=== PATIENT | male | born 1960 | race Caucasian/White ===

== ENCOUNTER → 2017-06-21 | Outpatient (CLI) | payer BC | LOC: CARD 10:20 | PROVIDERS: ATTEND Internal Medicine Cardiovascular Disease | DX: I48.0 Paroxysmal atrial fibrillation (principal); I25.10 Atherosclerotic heart disease of native coronary artery without angina pectoris; I11.0 Hypertensive heart disease with heart failure; I50.9 Heart failure, unspecified; E78.2 Mixed hyperlipidemia | CPT/HCPCS: 93306 ==

== ENCOUNTER 2017-07-09 19:48 | Outpatient (CLI) | payer BC | END 2017-07-10 06:36 | disposition home or self-care (01) | LOC: SLEEP 19:48 | PROVIDERS: ATTEND Internal Medicine Cardiovascular Disease | DX: R06.83 Snoring (principal); G47.10 Hypersomnia, unspecified; I10 Essential (primary) hypertension; I49.9 Cardiac arrhythmia, unspecified | CPT/HCPCS: 95810 ==

== ENCOUNTER 2017-08-03 08:17 | Day surgery (SDC) | payer BC ==
[~2017-08-03] VITALS: Ht 180.3 cm; Wt 147.4 kg
--- OUTSIDE RECORDS SUMMARY | 2017-08-03 08:21 | XMS REPORT ---
Author MAYITO [facility] Address [address] [place], [place] [id number] Care Team Providers Care Threat Monitoring Analyst Name Role Phone MAYITO DENIS PCP Unavailable MAYITO DENIS PreferredProvider Unavailable Allergies and Adverse Reactions Name Reaction Notes No known allergies Plan of Treatment Planned Activity Comments Planned Date Planned Time Plan/Goal CBC with Differential 07/02/2017 12:00 AM CMP 07/02/2017 12:00 AM .Lipid Panel 07/02/2017 12:00 AM THYROID PANEL. 07/02/2017 12:00 AM THYROID PANEL. 07/02/2017 12:00 AM THYROID PANEL. 07/02/2017 12:00 AM Medications Active Name Start Date Estimated Completion Date SIG Comments carvedilol 25 mg oral tablet 05/04/2017 lisinopril 20 mg oral tablet 05/04/2017 Xarelto 20 mg oral tablet 05/04/2017 digoxin 125 mcg oral tablet 05/04/2017 furosemide 40 mg oral tablet 05/04/2017 atorvastatin 20 mg oral tablet 02/01/2017 Problem List Not available. Vital Signs Date Time BP-Sys(mm[Hg] BP-Carlita(mm[Hg]) HR(bpm) RR(rpm) Temp WT HT HC BMI BSA BMI Percentile O2 Sat(%) 05/22/2017 6:52:00 AM 132 mmHg 80 mmHg 70 bpm 16 rpm 98 F 322 lbs 71.5 in 44.28 kg/m2 2.71 m2 98 % Social History Name Description Comments Tobacco Never smoker Alcohol Light Uses seatbelts History of Procedures Date Ordered Description Order Status 07/02/2017 12:00 AM ROUTINE VENIPUNCTURE Reviewed Results Summary Not available. History Of Immunizations Not available. 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
--- OUTSIDE RECORDS SUMMARY | 2017-08-03 08:21 | XMS REPORT | Referral Summary ---
Author Author [facility] Organization [facility] Address Unknown Phone Unavailable Care Team Providers Care Chief Diversity Officer Name Role Phone Dex Kennedy PCP Encounter VC Date(s): 12/30/14 - 12/30/14 [facility] [address] [place], [place] [address] Discharge Diagnosis: Chronic atrial fibrillation Discharge Diagnosis: Nonischemic cardiomyopathy Discharge Diagnosis: Chronic systolic CHF (congestive heart failure), NYHA class 2 Discharge Diagnosis: CAD (coronary artery disease) Discharge Diagnosis: Family history of coronary artery disease Discharge Diagnosis: Benign essential HTN Discharge Disposition: 01-Home or Self Care Attending Physician: Umesh Ortiz MD Admitting Physician: Umesh Ortiz MD Referring Physician: Dex Kennedy MD Vital Signs Most recent to 1 oldest [Reference Range]: Peripheral Pulse 60 bpm Rate [60-100 bpm] (12/30/14 2:50 PM) Blood Pressure 118/82 mmHg [90-140/60-90 mmHg] (12/30/14 2:50 PM) Problem List Condition Effective Dates Status Health Status Informant Atrial Active patient fibrillation(Confirm ed) Congestive heart Active patient failure(Confirmed) Fluid Active imbalance(Confirmed) 1 Hypertension(Confirm Active patient ed) Morbid Active patient obesity(Confirmed) Decreased urine Active patient volume(Confirmed) 1Problem added automatically by system based on initiation of Fluid Volume Imbalance Plan of Care Allergies, Adverse Reactions, Alerts No Known Medication Allergies Medications aspirin 81 mg oral tablet, chewable 1 tabs, Oral, Daily, 0 Refill(s) Start Date: 07/17/14 Status: Ordered atorvastatin 10 mg oral tablet 1 tabs, Oral, Bedtime (once a day), # 90 tabs, 5 Refill(s), Pharmacy: [id number], 1 tabs Oral Bedtime (once a day) Start Date: 07/30/14 Status: Ordered carvedilol 25 mg oral tablet 25 mg 1 tabs, Oral, BID, # 60 tabs, 5 Refill(s), Pharmacy: [id number] , 1 tabs Oral BID Start Date: 05/24/15 Status: Ordered digoxin 125 mcg (0.125 mg) oral tablet 1 tabs, Oral, Daily, # 90 tabs, 5 Refill(s), Pharmacy: [id number], 1 tabs Oral Daily Start Date: 07/30/14 Status: Ordered furosemide 40 mg oral tablet 1 tabs, Oral, BID, # 180 tabs, 5 Refill(s), Pharmacy: [id number], 1 tabs Oral BID Start Date: 07/30/14 Status: Ordered lisinopril 20 mg oral tablet 1 tabs, Oral, Daily, # 90 tabs, 5 Refill(s), Pharmacy: [id number] Start Date: 09/30/14 Status: Ordered multivitamin 1 tabs, Oral, Daily, 0 Refill(s) Start Date: 12/30/14 Status: Ordered Xarelto 20 mg oral tablet 1 tabs, Oral, qPM, # 30 tabs, 11 Refill(s), Pharmacy: [id number], 1 tabs Oral qPM Start Date: 11/20/14 Status: Ordered Results No data available for this section Immunizations No data available for this section Procedures Procedure Date Related Diagnosis Body Site Colonoscopy Tonsillectomy Social History Social History Type Response Smoking Status Former smoker Assessment and Plan Extracted from: Title: Office Visit Note Author: Umesh Ortiz MD Date: 12/30/14 Assessment/Plan Benign essential HTN Controlled. Continue current meds. Ordered: Office Visit Level 4 Est [id number] Return to Clinic CAD (coronary artery disease) Nonobstructive CAD per cath in November 2014. Continue aspirin, Coreg, Atorvastatin. Chronic atrial fibrillation Rate is controlled. Continue digoxin, Coreg, Xarelto. Ordered: Office Visit Level 4 Est [id number] Return to Clinic Chronic systolic CHF (congestive heart failure), NYHA class 2 Euvolemic. NYHA FC I-II. Continue lasix, Coreg, lisinopril, digoxin. LVEF 15-20% in June 2014. Will repeat echo. If LVEF < 35%, will refer for AICD for primary prevention for SCD. Ordered: Office Visit Level 4 Est [id number] Return to Clinic Family history of coronary artery disease Ordered: Office Visit Level 4 Est [id number] Return to Clinic Nonischemic cardiomyopathy See CHF. F/u in 4 months. Ordered: Office Visit Level 4 Est [id number] Return to Clinic Orders: Request for Cardiovascular Echo Referrals to Other Providers Referred by: Umesh Ortiz MD
--- OUTSIDE RECORDS SUMMARY | 2017-08-03 08:21 | XMS REPORT | Referral Summary ---
Author Author [facility] Organization [facility] Address Unknown Phone Unavailable Care Team Providers Care Bonderizer Operator Name Role Phone Dex Kennedy PCP Encounter VC Date(s): 12/30/14 - 12/30/14 [facility] [address] [place], [place] [address] Discharge Diagnosis: Chronic atrial fibrillation Discharge Diagnosis: [...] meds. Ordered: Office Visit Level 4 Est [id number] Return to Clinic CAD (coronary artery disease) Nonobstructive CAD per cath in November 2014. Continue aspirin, Coreg, Atorvastatin. Chronic atrial fibrillation Rate is controlled. Continue digoxin, Coreg, Xarelto. Ordered: Office Visit Level 4 Est [id number] Return to Clinic Chronic systolic CHF (congestive heart failure), NYHA class 2 Euvolemic. NYHA FC I-II. Continue lasix, Coreg, lisinopril, digoxin. LVEF 15-20% in June 2014. Will repeat echo. If LVEF < 35%, will refer for AICD for primary prevention for SCD. Ordered: Office Visit Level 4 Est [id number] Return to Clinic Family history of coronary artery disease Ordered: Office Visit Level 4 Est [id number] Return to Clinic Nonischemic cardiomyopathy See CHF. F/u in 4 months. Ordered: Office Visit Level 4 Est [id number] Return to Clinic Orders: Request for Cardiovascular Echo Referrals to Other Providers Referred by: Umesh Ortiz MD
--- OUTSIDE RECORDS SUMMARY | 2017-08-03 08:21 | XMS REPORT | Referral Summary ---
Author Author [facility] Organization [facility] Address Unknown Phone Unavailable Care Team Providers Care Past Due Accounts Clerk Name Role Phone Dex Kennedy PCP Encounter VC Date(s): 05/24/16 - 05/24/16 [facility] [address] [place] [address] Discharge Diagnosis: Family history of coronary artery disease Discharge Diagnosis: Chronic atrial fibrillation Discharge Diagnosis: Chronic systolic heart failure Discharge Diagnosis: CAD (coronary artery disease) Discharge Diagnosis: HTN (hypertension) Discharge Disposition: 01-Home or Self Care Attending Physician: Umesh Ortiz MD Admitting Physician: Umesh Ortiz MD Vital Signs Most recent to 1 oldest [Reference Range]: Peripheral Pulse 72 bpm Rate [60-100 bpm] (05/24/16 2:05 PM) Blood Pressure 124/82 mmHg [90-140/60-90 mmHg] (05/24/16 2:05 PM) Problem List Condition Effective Dates Status [...] Status: Ordered carvedilol 25 mg oral tablet See Instructions, 1 TABS ORAL TWICE DAILY, # 60 tabs, 5 Refill(s), eRx: [id number], 1 TABS ORAL TWICE DAILY Start Date: 12/02/15 Status: Ordered digoxin 125 mcg (0.125 mg) oral tablet See Instructions, TAKE 1 TABLET DAILY, # 30 tabs, eRx: [id number], TAKE 1 TABLET DAILY Start Date: 05/18/16 Status: Ordered furosemide 40 mg oral tablet 40 mg 1 tabs, Oral, Daily, # 180 tabs, 5 Refill(s), eRx: [id number], 1 tabs Oral BID Start Date: 09/16/15 Status: Ordered lisinopril 10 mg oral tablet See Instructions, 1 tabs Oral Daily, # 90 tabs, 5 Refill(s), eRx: [id number], 1 tabs Oral Daily Start Date: 10/19/15 Status: Ordered multivitamin 1 tabs, Oral, Daily, 0 Refill(s) Start Date: 12/30/14 Status: Ordered Xarelto 20 mg oral tablet 20 mg 1 tabs, Oral, qPM, # 30 tabs, 6 Refill(s), Pharmacy: [id number] , 1 tabs Oral qPM Start Date: 12/08/15 Status: Ordered Results No data available for this section Immunizations No data available for this section Procedures Procedure Date Related Diagnosis Body Site Colonoscopy Tonsillectomy Social History Social History Type Response Smoking Status Former smoker Assessment and Plan Extracted from: Title: Ambulatory Patient Education Author: Umesh Ortiz MD Date : 05/24/16 Cardiovascular Atrial Fibrillation Atrial fibrillation is a type of irregular heart rhythm (arrhythmia). During atrial fibrillation, the upper chambers of the heart (atria) quiver continuously in a chaotic pattern. This causes an irregular and often rapid heart rate. Atrial fibrillation is the result of the heart becoming overloaded with disorganized signals that tell it to beat. These signals are normally released one at a time by a part of the right atrium called the sinoatrial node. They then travel from the atria to the lower chambers of the heart (ventricles), causing the atria and ventricles to contract and pump blood as they pass. In atrial fibrillation, parts of the atria outside of the sinoatrial node also release these signals. This results in two problems. First, the atria receive so many signals that they do not have time to fully contract. Second, the ventricles, which can only receive one signal at a time, beat irregularly and out of rhythm with the atria. There are three types of atrial fibrillation: Paroxysmal. Paroxysmal atrial fibrillation starts suddenly and stops on its own within a week. Persistent. Persistent atrial fibrillation lasts for more than a week. It may stop on its own or with treatment. Permanent. Permanent atrial fibrillation does not go away. Episodes of atrial fibrillation may lead to permanent atrial fibrillation. Atrial fibrillation can prevent your heart from pumping blood normally. It increases your risk of stroke and can lead to heart failure. CAUSES Heart conditions, including a heart attack, heart failure, coronary artery disease, and heart valve conditions. Inflammation of the sac that surrounds the heart (pericarditis). Blockage of an artery in the lungs (pulmonary embolism). Pneumonia or other infections. Chronic lung disease. Thyroid problems, especially if the thyroid is overactive (hyperthyroidism) . Caffeine, excessive alcohol use, and use of some illegal drugs. Use of some medicines, including certain decongestants and diet pills. Heart surgery. defects. Sometimes, no cause can be found. When this happens, the atrial fibrillation is called lone atrial fibrillation. The risk of complications from atrial fibrillation increases if you have lone atrial fibrillation and you are age 60 years or older. RISK FACTORS Heart failure. Coronary artery disease. Diabetes mellitus. High blood pressure (hypertension). Obesity. Other arrhythmias. Increased age. SIGNS AND SYMPTOMS A feeling that your heart is beating rapidly or irregularly. A feeling of discomfort or pain in your chest. Shortness of breath. Sudden light-headedness or weakness. Getting tired easily when exercising. Urinating more often than normal (mainly when atrial fibrillation first begins). In paroxysmal atrial fibrillation, symptoms may start and suddenly stop. DIAGNOSIS Your health care provider may be able to detect atrial fibrillation when taking your pulse. Your health care provider may have you take a test called an ambulatory electrocardiogram (ECG). An ECG records your heartbeat patterns over a 24-hour period. You may also have other tests, such as: Transthoracic echocardiogram (TTE). During echocardiography, sound waves are used to evaluate how blood flows through your heart. Transesophageal echocardiogram (BUCKY). Stress test. There is more than one type of stress test. If a stress test is needed, ask your health care provider about which type is best for you. Chest X-ray exam. Blood tests. Computed tomography (CT). TREATMENT Treatment may include: Treating any underlying conditions. For example, if you have an overactive thyroid, treating the condition may correct atrial fibrillation. Taking medicine. Medicines may be given to control a rapid heart rate or to prevent blood clots, heart failure, or a stroke. Having a procedure to correct the rhythm of the heart: Electrical cardioversion. During electrical cardioversion, a controlled, low-energy shock is delivered to the heart through your skin. If you have chest pain, very low blood pressure, or sudden heart failure, this procedure may need to be done as an emergency. Catheter ablation. During this procedure, heart tissues that send the signals that cause atrial fibrillation are destroyed. Surgical ablation. During this surgery, thin lines of heart tissue that carry the abnormal signals are destroyed. This procedure can either be an open- heart surgery or a minimally invasive surgery. With the minimally invasive surgery, small cuts are made to access the heart instead of a large opening. Pulmonary venous isolation. During this surgery, tissue around the veins that carry blood from the lungs (pulmonary veins) is destroyed. This tissue is thought to carry the abnormal signals. HOME CARE INSTRUCTIONS Take medicines only as directed by your health care provider. Some medicines can make atrial fibrillation worse or recur. If blood thinners were prescribed by your health care provider, take them exactly as directed. Too much blood-thinning medicine can cause bleeding. If you take too little, you will not have the needed protection against stroke and other problems. Perform blood tests at home if directed by your health care provider. Perform blood tests exactly as directed. Quit smoking if you smoke. Do not drink alcohol. Do not drink caffeinated beverages such as coffee, soda, and some teas. You may drink decaffeinated coffee, soda, or tea. Maintain a healthy weight.Do not use diet pills unless your health care provider approves. They may make heart problems worse. Follow diet instructions as directed by your health care provider. Exercise regularly as directed by your health care provider. Keep all follow-up visits as directed by your health care provider. This is important. PREVENTION The following substances can cause atrial fibrillation to recur: Caffeinated beverages. Alcohol. Certain medicines, especially those used for breathing problems. Certain herbs and herbal medicines, such as those containing ephedra or ginseng. Illegal drugs, such as cocaine and amphetamines. Sometimes medicines are given to prevent atrial fibrillation from recurring. Proper treatment of any underlying condition is also important in helping prevent recurrence. SEEK MEDICAL CARE IF: You notice a change in the rate, rhythm, or strength of your heartbeat. You suddenly begin urinating more frequently. You tire more easily when exerting yourself or exercising. SEEK IMMEDIATE MEDICAL CARE IF: You have chest pain, abdominal pain, sweating, or weakness. You feel nauseous. You have shortness of breath. You suddenly have swollen feet and ankles. You feel dizzy. Your face or limbs feel numb or weak. You have a change in your vision or speech. MAKE SURE YOU: Understand these instructions. Will watch your condition. Will get help right away if you are not doing well or get worse. This information is not intended to replace advice given to you by your health care provider. Make sure you discuss any questions you have with your health care provider. Document Released: 08/06/2006 Document Revised: 08/27/2015 Document Reviewed: [facility] Patient Information 2016 [employer]. No follow up information was provided. Extracted from: Title: Office Visit Note Author: Umesh Ortiz MD Date: 05/24/16 Assessment/Plan 1.Chronic systolic heart failure NYHA FC I. Euvolemic on the exam. Normalized LVEF. Continue lasix, Coreg, and Lisinopril. 2.Chronic atrial fibrillation Rate is controlled. Continue Coreg, digoxin , and Xarelto. 3.CAD (coronary artery disease) Checkfasting lipid with PCP. Nonobstructive coronaries. Continue ASA and statin. 4.HTN (hypertension) Controlled. Continue current meds. 5.Family history of coronary artery disease F/u 6 months. Referrals to Other Providers Referred by: Umesh Ortiz MD
--- OUTSIDE RECORDS SUMMARY | 2017-08-03 08:22 | XMS REPORT | Referral Summary ---
Author Author [facility] Organization [facility] Address Unknown Phone Unavailable Care Team Providers Care Tractor Crane Operator Name Role Phone Dex Kennedy PCP Encounter VC Date(s): 12/30/14 - 12/30/14 [facility] [address] [place], [place] [address] Discharge Diagnosis: Chronic atrial fibrillation Discharge [...] meds. Ordered: Office Visit Level 4 Est [id number] Return to Clinic CAD (coronary artery disease) Nonobstructive CAD per cath in November 2014. Continue aspirin, Coreg, Atorvastatin. Chronic atrial fibrillation Rate is controlled. Continue digoxin, Coreg, Xarelto. Ordered: Office Visit Level 4 Est [id number] Return to Clinic Chronic systolic CHF (congestive heart failure), NYHA class 2 Euvolemic. NYHA FC I-II. Continue lasix, Coreg, lisinopril, digoxin. LVEF 15-20% in June 2014. Will repeat echo. If LVEF < 35%, will refer for AICD for primary prevention for SCD. Ordered: Office Visit Level 4 Est [id number] Return to Clinic Family history of coronary artery disease Ordered: Office Visit Level 4 Est [id number] Return to Clinic Nonischemic cardiomyopathy See CHF. F/u in 4 months. Ordered: Office Visit Level 4 Est [id number] Return to Clinic Orders: Request for Cardiovascular Echo Referrals to Other Providers Referred by: Umesh Ortiz MD
--- OUTSIDE RECORDS SUMMARY | 2017-08-03 08:22 | XMS REPORT | Referral Summary ---
Author Author [facility] Organization [facility] Address Unknown Phone Unavailable Care Team Providers Care Hand Paint Mixer Name Role Phone Dex Kennedy PCP Encounter VC Date(s): 12/30/14 - 12/30/14 [facility] [address] [place], [place] [address] Discharge Diagnosis: Chronic atrial fibrillation Discharge Diagnosis: [...] meds. Ordered: Office Visit Level 4 Est [id number] Return to Clinic CAD (coronary artery disease) Nonobstructive CAD per cath in November 2014. Continue aspirin, Coreg, Atorvastatin. Chronic atrial fibrillation Rate is controlled. Continue digoxin, Coreg, Xarelto. Ordered: Office Visit Level 4 Est [id number] Return to Clinic Chronic systolic CHF (congestive heart failure), NYHA class 2 Euvolemic. NYHA FC I-II. Continue lasix, Coreg, lisinopril, digoxin. LVEF 15-20% in June 2014. Will repeat echo. If LVEF < 35%, will refer for AICD for primary prevention for SCD. Ordered: Office Visit Level 4 Est [id number] Return to Clinic Family history of coronary artery disease Ordered: Office Visit Level 4 Est [id number] Return to Clinic Nonischemic cardiomyopathy See CHF. F/u in 4 months. Ordered: Office Visit Level 4 Est [id number] Return to Clinic Orders: Request for Cardiovascular Echo Referrals to Other Providers Referred by: Umesh Ortiz MD
--- OUTSIDE RECORDS SUMMARY | 2017-08-03 08:22 | XMS REPORT | Referral Summary ---
Author Author [facility] Organization [facility] Address Unknown Phone Unavailable Care Team Providers Care Form Building Supervisor Name Role Phone Dex Kennedy PCP Encounter VC Date(s): 12/30/14 - 12/30/14 [facility] [address] [place], [place] [address] Discharge Diagnosis: Chronic atrial fibrillation Discharge Diagnosis: [...] meds. Ordered: Office Visit Level 4 Est [id number] Return to Clinic CAD (coronary artery disease) Nonobstructive CAD per cath in November 2014. Continue aspirin, Coreg, Atorvastatin. Chronic atrial fibrillation Rate is controlled. Continue digoxin, Coreg, Xarelto. Ordered: Office Visit Level 4 Est [id number] Return to Clinic Chronic systolic CHF (congestive heart failure), NYHA class 2 Euvolemic. NYHA FC I-II. Continue lasix, Coreg, lisinopril, digoxin. LVEF 15-20% in June 2014. Will repeat echo. If LVEF < 35%, will refer for AICD for primary prevention for SCD. Ordered: Office Visit Level 4 Est [id number] Return to Clinic Family history of coronary artery disease Ordered: Office Visit Level 4 Est [id number] Return to Clinic Nonischemic cardiomyopathy See CHF. F/u in 4 months. Ordered: Office Visit Level 4 Est [id number] Return to Clinic Orders: Request for Cardiovascular Echo Referrals to Other Providers Referred by: Umesh Ortiz MD
--- OUTSIDE RECORDS SUMMARY | 2017-08-03 08:22 | XMS REPORT | Referral Summary ---
Author Author [facility] Organization [facility] Address Unknown Phone Unavailable Care Team Providers Care Airport Ramp Supervisor Name Role Phone Dex Kennedy PCP Encounter VC Date(s): 01/08/15 - 01/08/15 [facility] [address] [place], [place] [address] Discharge Diagnosis: OTHER PRIMARY CARDIOMYOPATHIES Discharge Diagnosis: ATRIAL FIBRILLATION Discharge Diagnosis: CHRONIC SYSTOLIC HEART FAILURE Discharge Diagnosis: FAMILY HISTORY OF ISCHEMIC HEART DISEASE Discharge Diagnosis: BENIGN ESSENTIAL HYPERTENSION Discharge Disposition: 01-Home or Self Care Attending Physician: Umesh Ortiz MD Admitting Physician: Umesh Ortiz MD Vital Signs No data available for this section Problem List Condition Effective Dates Status Health [...] qPM, # 30 tabs, 11 Refill(s), Pharmacy: [id number], 1 tabs Oral qPM Start Date: 11/20/14 Status: Ordered Results No data available for this section Immunizations No data available for this section Procedures Procedure Date Related Diagnosis Body Site Colonoscopy Tonsillectomy Social History Social History Type Response Smoking Status Former smoker Assessment and Plan No data available for this section
--- OUTSIDE RECORDS SUMMARY | 2017-08-03 08:22 | XMS REPORT | Referral Summary ---
Author Author [facility] Organization [facility] Address Unknown Phone Unavailable Care Team Providers Care Assembler Piano Name Role Phone Dex Kennedy PCP Encounter VC Date(s): 05/24/15 - 05/24/15 [facility] [address] [place], [place] [address] Discharge Diagnosis: Chronic atrial fibrillation Discharge Diagnosis: Nonischemic cardiomyopathy Discharge Diagnosis: Benign essential HTN Discharge Diagnosis: Chronic systolic CHF (congestive heart failure) Discharge Diagnosis: Family history of coronary artery disease Discharge Diagnosis: CAD (coronary artery disease) Discharge Disposition: 01-Home or Self Care Attending Physician: Umesh Ortiz MD Admitting Physician: Umesh Ortiz MD Vital Signs Most recent to 1 oldest [Reference Range]: Peripheral Pulse 88 bpm Rate [60-100 bpm] (05/24/15 2:42 PM) Blood Pressure 160/90 mmHg [90-140/60-90 mmHg] *HI* (05/24/15 2:42 PM) Problem List Condition Effective Dates Status [...] qPM Start Date: 11/20/14 Status: Ordered Results Chemistry Most recent to 1 oldest [Reference Range]: Sodium Lvl [135-144 144 mEq/L mEq/L] (05/24/15 4:03 PM) Potassium Lvl 4.0 mEq/L [3.5-5.2 mEq/L] (05/24/15 4:03 PM) Chloride [99-111 106 mEq/L mEq/L] (05/24/15 4:03 PM) CO2 [23-31 mEq/L] 28 mEq/L (05/24/15 4:03 PM) AGAP [3-20] 10 (05/24/15 4:03 PM) BUN [8-26 mg/dL] 21 mg/dL (05/24/15 4:03 PM) Glucose Lvl [70-99 114 mg/dL mg/dL] *HI* (05/24/15 4:03 PM) Creatinine Lvl 1.15 mg/dL [0.72-1.25 mg/dL] (05/24/15 4:03 PM) eGFR [>60 mL/min] >60 mL/min 1 (05/24/15 4:03 PM) Calcium Lvl 9.2 mg/dL [8.9-10.5 mg/dL] (05/24/15 4:03 PM) BNP [0-99 pg/mL] 50 pg/mL (05/24/15 4:03 PM) 1Result Comment: Multiply eGFR results by 1.21 for race. Immunizations No data available for this section Procedures Procedure Date Related Diagnosis Body Site Collection of venous blood by venipuncture 05/24/15 Colonoscopy Tonsillectomy Social History Social History Type Response Smoking Status Former smoker Assessment and Plan Extracted from: Title: Ambulatory Patient Education Author: Umesh Ortiz MD Date : 05/24/15 Family Medicine Cardiomyopathy Cardiomyopathy means a disease of the heart muscle. The heart muscle becomes enlarged or stiff. The heart is not able to pump enough blood or deliver enough oxygen to the body. This leads to heart failure and is the number one reason for heart transplants. TYPES OF CARDIOMYOPATHY INCLUDE: DILATED The most common type. The heart muscle is stretched out and weak so there is less blood pumped out. Some causes: Disease of the arteries of the heart (ischemia). Heart attack with muscle scar. Leaky or damaged valves. After a viral illness. Smoking. High cholesterol. Diabetes or overactive thyroid. Alcohol or drug abuse. High blood pressure. May be reversible. HYPERTROPHIC The heart muscle grows bigger so there is less room for blood in the ventricle, and not enough blood is pumped out. Causes include: Mitral valve leaks. Inherited tendency (from your family). No explanation (idiopathic). May be a cause of sudden in young athletes with no symptoms. RESTRICTIVE The heart muscle becomes stiff, but not always larger. The heart has to work harder and will get weaker. Abnormal heart beats or rhythm (arrhythmia) are common. Some causes: Diseases in other parts of the body which may produce abnormal deposits in the heart muscle. Probably not inherited. A result of radiation treatment for cancer. SYMPTOMS OF ALL TYPES: Less able to exercise or tolerate physical activity. Palpitations. Irregular heart beat, heart arrhythmias. Shortness of breath, even at rest. Chest pain. Lightheadedness or fainting. TREATMENT Life-style changes including reducing salt, lowering cholesterol, stop smoking. Manage contributing causes with medications. Medicines to help reduce the fluids in the body. An implanted cardioverter defibrillator (ICD) to improve heart function and correct arrhythmias. Medications to relax the blood vessels and make it easier for the heart to pump. Drugs that help regulate heart beat and improve heart relaxation, reducing the work of the heart. Myomectomy for patients with hypertrophic cardiomyopathy and severe problems. This is a surgical procedure that removes a portion of the thickened muscle wall in order to improve heart output and provide symptom relief. A heart transplant is an option in carefully applied circumstances. SEEK IMMEDIATE MEDICAL CARE IF: You have severe chest pain, especially if the pain is crushing or pressure- like and spreads to the arms, back, neck, or jaw, or if you have sweating, feeling sick to your stomach (nausea), or shortness of breath. THIS IS AN EMERGENCY. Do not wait to see if the pain will go away. Get medical help at once. Call your local emergency services (911 in [place] DO NOT drive yourself to the hospital. You develop severe shortness of breath. You begin to cough up bloody sputum. You are unable to sleep because you cannot breathe. You gain weight due to fluid retention. You develop painful swelling in your calf or leg. You feel your heart racing and it does not go away or happens when you are resting. Document Released: 10/19/2005 Document Revised: 10/28/2012 Document Reviewed: [facility] Patient Information 2015 [employer] [facility]. This information is not intended to replace advice given to you by your health care provider. Make sure you discuss any questions you have with your health care provider. No follow up information was provided. Extracted from: Title: Office Visit Note Author: Umesh Ortiz MD Date: 05/24/15 Assessment/Plan Benign essential HTN Elevated. Could be related to knee pain. But I will increase Coreg to 25 mg bid. CAD (coronary artery disease) Nonobstructive CAD. Continue aspirin, BB, statin. Chronic atrial fibrillation In sinus rhythm, continue Xarelto. Increase Coreg for elevated BP. Chronic systolic CHF (congestive heart failure) Normalized LVEF. Continue lisinopril. Increase Coreg 25 mg bid. Euvolemic. Continue Furosemide and Digoxin. Family history of coronary artery disease Nonischemic cardiomyopathy See CHF. F/u in 6 months. Referrals to Other Providers Referred by: Umesh Ortiz MD
--- OUTSIDE RECORDS SUMMARY | 2017-08-03 08:22 | XMS REPORT ---
Author MAYITO [facility] Address [address] [place], [place] [id number] Care Team Providers Care Motor Coach Tour Operator Name Role Phone MAYITO DENIS PCP Unavailable MAYITO DENIS PreferredProvider Unavailable Allergies and Adverse Reactions Name Reaction Notes No known allergies Plan of Treatment Not available. Medications Active Name Start Date Estimated Completion [...] Alcohol Light Uses seatbelts History of Procedures Not available. Results Summary Not available. History Of Immunizations Not available. 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
--- OUTSIDE RECORDS SUMMARY | 2017-08-03 08:22 | XMS REPORT | Referral Summary ---
Author Author [facility] Organization [facility] Address Unknown Phone Unavailable Care Team Providers Care Pretzel Twister Name Role Phone Dex Kennedy PCP Encounter VC Date(s): 11/22/15 - 11/22/15 [facility] [address] [place], [place] [address] Discharge Diagnosis: Benign essential HTN Discharge Diagnosis: Family history of coronary artery disease Discharge Diagnosis: CAD (coronary artery disease) Discharge Diagnosis: Chronic systolic CHF (congestive heart failure), NYHA class 1 Discharge Diagnosis: Chronic atrial fibrillation Discharge Disposition: 01-Home or Self Care Attending Physician: Umesh Ortiz MD Admitting Physician: Umesh Ortiz MD Referring Physician: Dex Kennedy MD Vital Signs Most recent to 1 oldest [Reference Range]: Peripheral Pulse 64 bpm Rate [60-100 bpm] (11/22/15 2:17 PM) Respiratory Rate 20 br/min [14-20 br/min] (11/22/15 2:17 PM) Blood Pressure 120/80 mmHg [90-140/60-90 mmHg] (11/22/15 2:17 PM) Problem List Condition Effective Dates Status [...] digoxin 125 mcg (0.125 mg) oral tablet 125 mcg 1 tabs, Oral, Daily, # 30 Each, 3 Refill(s), Pharmacy: [id number], 1 tabs Oral Daily Start Date: 08/19/15 Status: Ordered furosemide 40 mg oral tablet [...] 1 oldest [Reference Range]: Sodium Lvl [135-144 141 mEq/L mEq/L] (11/22/15 3:34 PM) Potassium Lvl 4.3 mEq/L [3.5-5.2 mEq/L] (11/22/15 3:34 PM) Chloride [99-111 107 mEq/L mEq/L] (11/22/15 3:34 PM) CO2 [23-31 mEq/L] 28 mEq/L (11/22/15 3:34 PM) AGAP [3-20] 6 (11/22/15 3:34 PM) BUN [8-26 mg/dL] 19 mg/dL (11/22/15 3:34 PM) Glucose Lvl [70-99 93 mg/dL mg/dL] (11/22/15 3:34 PM) Creatinine Lvl 1.06 mg/dL [0.72-1.25 mg/dL] (11/22/15 3:34 PM) eGFR [>60 mL/min] >60 mL/min 1 (11/22/15 3:34 PM) Calcium Lvl 9.1 mg/dL [8.9-10.5 mg/dL] (11/22/15 3:34 PM) BNP [0-99 pg/mL] 97 pg/mL (11/22/15 3:34 PM) 1Result Comment: Multiply eGFR results by 1.21 for race. Immunizations No data available for this section Procedures Procedure Date Related Diagnosis Body Site Colonoscopy Tonsillectomy Social History Social History Type Response Smoking Status Former smoker Assessment and Plan Extracted from: Title: Ambulatory Patient Education Author: Umesh Ortiz MD Date : 11/22/15 Cardiovascular Heart Failure Heart failure is a condition in which the heart has trouble pumping blood. This means your heart does not pump blood efficiently for your body to work well. In some cases of heart failure, fluid may back up into your lungs or you may have swelling (edema) in your lower legs. Heart failure is usually a long-term ( chronic) condition. It is important for you to take good care of yourself and follow your health care provider's treatment plan. CAUSES Some health conditions can cause heart failure. Those health conditions include: High blood pressure (hypertension). Hypertension causes the heart muscle to work harder than normal. When pressure in the blood vessels is high, the heart needs to pump (contract) with more force in order to circulate blood throughout the body. High blood pressure eventually causes the heart to become stiff and weak. Coronary artery disease (CAD). CAD is the buildup of cholesterol and fat ( plaque) in the arteries of the heart. The blockage in the arteries deprives the heart muscle of oxygen and blood. This can cause chest pain and may lead to a heart attack. High blood pressure can also contribute to CAD. Heart attack (myocardial infarction). A heart attack occurs when one or more arteries in the heart become blocked. The loss of oxygen damages the muscle tissue of the heart. When this happens, part of the heart muscle dies. The injured tissue does not contract as well and weakens the heart's ability to pump blood. Abnormal heart valves. When the heart valves do not open and close properly , it can cause heart failure. This makes the heart muscle pump harder to keep the blood flowing. Heart muscle disease (cardiomyopathy or myocarditis). Heart muscle disease is damage to the heart muscle from a variety of causes. These can include drug or alcohol abuse, infections, or unknown reasons. These can increase the risk of heart failure. Lung disease. Lung disease makes the heart work harder because the lungs do not work properly. This can cause a strain on the heart, leading it to fail. Diabetes. Diabetes increases the risk of heart failure. High blood sugar contributes to high fat (lipid) levels in the blood. Diabetes can also cause slow damage to tiny blood vessels that carry important nutrients to the heart muscle. When the heart does not get enough oxygen and food, it can cause the heart to become weak and stiff. This leads to a heart that does not contract efficiently. Other conditions can contribute to heart failure. These include abnormal heart rhythms, thyroid problems, and low blood counts (anemia). Certain unhealthy behaviors can increase the risk of heart failure, including: Being overweight. Smoking or chewing tobacco. Eating foods high in fat and cholesterol. Abusing illicit drugs or alcohol. Lacking physical activity. SYMPTOMS Heart failure symptoms may vary and can be hard to detect. Symptoms may include: Shortness of breath with activity, such as climbing stairs. Persistent cough. Swelling of the feet, ankles, legs, or abdomen. Unexplained weight gain. Difficulty breathing when lying flat (orthopnea). Waking from sleep because of the need to sit up and get more air. Rapid heartbeat. Fatigue and loss of energy. Feeling light-headed, dizzy, or close to fainting. Loss of appetite. Nausea. Increased urination during the night (nocturia). DIAGNOSIS A diagnosis of heart failure is based on your history, symptoms, physical examination, and diagnostic tests. Diagnostic tests for heart failure may include: Echocardiography. Electrocardiography. Chest X-ray. Blood tests. Exercise stress test. Cardiac angiography. Radionuclide scans. TREATMENT Treatment is aimed at managing the symptoms of heart failure. Medicines, behavioral changes, or surgical intervention may be necessary to treat heart failure. Medicines to help treat heart failure may include: Angiotensin-converting enzyme (KATHLEEN) inhibitors. This type of medicine blocks the effects of a blood protein called angiotensin-converting enzyme. KATHLEEN inhibitors relax (dilate) the blood vessels and help lower blood pressure. Angiotensin receptor blockers (ARBs). This type of medicine blocks the actions of a blood protein called angiotensin. Angiotensin receptor blockers dilate the blood vessels and help lower blood pressure. Water pills (diuretics). Diuretics cause the kidneys to remove salt and water from the blood. The extra fluid is removed through urination. This loss of extra fluid lowers the volume of blood the heart pumps. Beta blockers. These prevent the heart from beating too fast and improve heart muscle strength. Digitalis. This increases the force of the heartbeat. Healthy behavior changes include: Obtaining and maintaining a healthy weight. Stopping smoking or chewing tobacco. Eating heart-healthy foods. Limiting or avoiding alcohol. Stopping illicit drug use. Physical activity as directed by your health care provider. Surgical treatment for heart failure may include: A procedure to open blocked arteries, repair damaged heart valves, or remove damaged heart muscle tissue. A pacemaker to improve heart muscle function and control certain abnormal heart rhythms. An internal cardioverter defibrillator to treat certain serious abnormal heart rhythms. A left ventricular assist device (LVAD) to assist the pumping ability of the heart. HOME CARE INSTRUCTIONS Take medicines only as directed by your health care provider. Medicines are important in reducing the workload of your heart, slowing the progression of heart failure, and improving your symptoms. Do not stop taking your medicine unless directed by your health care provider. Do not skip any dose of medicine. Refill your prescriptions before you run out of medicine. Your medicines are needed every day. Engage in moderate physical activity if directed by your health care provider. Moderate physical activity can benefit some people. The elderly and people with severe heart failure should consult with a health care provider for physical activity recommendations. Eat heart-healthy foods. Food choices should be free of trans fat and low in saturated fat, cholesterol, and salt (sodium). Healthy choices include fresh or frozen fruits and vegetables, fish, lean meats, legumes, fat-free or low-fat dairy products, and whole grain or high fiber foods. Talk to a dietitian to learn more about heart-healthy foods. Limit sodium if directed by your health care provider. Sodium restriction may reduce symptoms of heart failure in some people. Talk to a dietitian to learn more about heart-healthy seasonings. Use healthy cooking methods. Healthy cooking methods include roasting, grilling, broiling, baking, poaching, steaming, or stir-frying. Talk to a dietitian to learn more about healthy cooking methods. Limit fluids if directed by your health care provider. Fluid restriction may reduce symptoms of heart failure in some people. Weigh yourself every day. Daily weights are important in the early recognition of excess fluid. You should weigh yourself every morning after you urinate and before you eat breakfast. Wear the same amount of clothing each time you weigh yourself. Record your daily weight. Provide your health care provider with your weight record. Monitor and record your blood pressure if directed by your health care provider. Check your pulse if directed by your health care provider. Lose weight if directed by your health care provider. Weight loss may reduce symptoms of heart failure in some people. Stop smoking or chewing tobacco. Nicotine makes your heart work harder by causing your blood vessels to constrict. Do not use nicotine gum or patches before talking to your health care provider. Keep all follow-up visits as directed by your health care provider. This is important. Limit alcohol intake to no more than 1 drink per day for non women and 2 drinks per day for men. One drink equals 12 ounces of beer, 5 ounces of wine, or 1 ounces of hard liquor. Drinking more than that is harmful to your heart. Tell your health care provider if you drink alcohol several times a week. Talk with your health care provider about whether alcohol is safe for you. If your heart has already been damaged by alcohol or you have severe heart failure, drinking alcohol should be stopped completely. Stop illicit drug use. Stay up-to-date with immunizations. It is especially important to prevent respiratory infections through current pneumococcal and influenza immunizations. Manage other health conditions such as hypertension, diabetes, thyroid disease, or abnormal heart rhythms as directed by your health care provider. Learn to manage stress. Plan rest periods when fatigued. Learn strategies to manage high temperatures. If the weather is extremely hot: Avoid vigorous physical activity. Use air conditioning or fans or seek a cooler location. Avoid caffeine and alcohol. Wear loose-fitting, lightweight, and light-colored clothing. Learn strategies to manage cold temperatures. If the weather is extremely cold: Avoid vigorous physical activity. Layer clothes. Wear mittens or gloves, a hat, and a scarf when going outside. Avoid alcohol. Obtain ongoing education and support as needed. Participate in or seek rehabilitation as needed to maintain or improve independence and quality of life. SEEK MEDICAL CARE IF: Your weight increases by 03 lb/1.4 kg in 1 day or 05 lb/2.3 kg in a week. You have increasing shortness of breath that is unusual for you. You are unable to participate in your usual physical activities. You tire easily. You cough more than normal, especially with physical activity. You have any or more swelling in areas such as your hands, feet, ankles, or abdomen. You are unable to sleep because it is hard to breathe. You feel like your heart is beating fast (palpitations). You become dizzy or light-headed upon standing up. SEEK IMMEDIATE MEDICAL CARE IF: You have difficulty breathing. There is a change in mental status such as decreased alertness or difficulty with concentration. You have a pain or discomfort in your chest. You have an episode of fainting (syncope). MAKE SURE YOU: Understand these instructions. Will watch your condition. Will get help right away if you are not doing well or get worse. This information is not intended to replace advice given to you by your health care provider. Make sure you discuss any questions you have with your health care provider. Document Released: 08/06/2006 Document Revised: 12/21/2014 Document Reviewed: [facility] Patient Information 2015 [employer] No follow up information was provided. Extracted from: Title: Office Visit Note Author: Umesh Ortiz MD Date: 11/22/15 Assessment/Plan 1.Chronic systolic CHF (congestive heart failure), NYHA class 1 Euvolemic on the exam. Check BMP to rule out hypokalemia since he has leg cramp. Check BNP. Continue current lasix. I ask him to take Lasix 40 mg daily instead of 20 mg bid. 2.Chronic atrial fibrillation Rate is controlled. Continue Coreg 25 mg bid , digoxin, Xarelto. 3.CAD (coronary artery disease) Nonobstructive coronaries. Continue ASA , BB, statin. 4.Benign essential HTN Controlled. Continue current meds. 5.Family history of coronary artery disease Referrals to Other Providers Referred by: Umesh Ortiz MD
--- OUTSIDE RECORDS SUMMARY | 2017-08-03 08:22 | XMS REPORT | Clinical Summary ---
Author Author Admin, [facility] Organization [employer] Address Unknown Phone Unavailable Allergies, Adverse Reactions, Alerts Allergy Name Reaction Description Start Date Severity Status Provider No Known Allergies Monique Skinner LRT Conditions or Problems Problem Name Problem Code Onset Date Status Entry Date Provider Comment Standard Description Annotate HYPERTENSION 401.9 Active Mansi Hankins RN Unspecified essential hypertension HYPERLIPIDEMIA 272.4 Active Geovanny LARA Other and unspecified hyperlipidemia PHYSICAL EXAMINATION V70.0 Resolved Jass Gutierrez MD Routine general medical examination at a health care facility CELLULITIS 682.9 Resolved Jass Gutierrez MD Cellulitis and abscess of unspecified sites Umbilical hernia 553.1 Active Jass Gutierrez MD Umbilical hernia without mention of obstruction or gangrene Obesity 278.00 Active Jass Gutierrez MD Obesity , unspecified Asthmatic bronchitis 493.90 Active Jass Gutierrez MD Asthma, unspecified HEALTH MAINTENANCE EXAM V70.0 Active Jass Gutierrez MD Routine general medical examination at a health care facility Screening for malignant neoplasms of colon V76.51 Active Manoj Reardon MD Screening for malignant neoplasms of colon Attic perforation of eardrum, 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 Tristin Quinonez DO Attic perforation of tympanic membrane PHYSICAL EXAMINATION ICD-V70.0 Inactive Jass Gutierrez MD CELLULITIS ICD-682.9 Inactive Jass Gutierrez MD Medication List Medication Instructions Start Date Stop Date Generic Name NDC Status Provider Patient Instruction AMOXICILLIN 500 MG CAPS 2 po TID x 10 days AMOXICILLIN 81821262721 Active Tristin Quinonez DO Active FUROSEMIDE 40 MG TAB 1 tablet by mouth daily FUROSEMIDE 43611721568 Active Tristin Quinonez DO Active LISINOPRIL 20 MG ORAL TABS 2 times a day LISINOPRIL 35064704884 Active Tristin Quinonez DO Active LANOXIN 125 MCG ORAL TABS 1 daily DIGOXIN 83362438866 Active Tristin Quinonez DO Active CARVEDILOL 12.5 MG ORAL TABS 1 daily CARVEDILOL 77268047843 Active Tristin Quinonez DO Active XARELTO 20 MG ORAL TABS 1 daily RIVAROXABAN 91398641281 Active Tristin Quinonez DO Active LOSARTAN POTASSIUM 100 MG TABS 1 pill by mouth daily, for blood pressure LOSARTAN POTASSIUM 59606406624 No Longer Active Tristin Quinonez DO Active HYDROCHLOROTHIAZIDE 25 MG TABS by mouth twice a day HYDROCHLOROTHIAZIDE 86823600944 No Longer Active Tristin Quinonez DO Active PROAIR HFA 108 (90 BASE) MCG/ACT AERS 2 puffs four times a day as needed 2013 ALBUTEROL SULFATE 42061099209 No Longer Active Tristin Quinonez DO Active METOPROLOL SUCCINATE 50 MG TB24 1 tablet by mouth daily METOPROLOL SUCCINATE 77218137230 No Longer Active Tristin Quinonez DO Active CLINDAMYCIN HCL 150 MG CAPS 1 four times a day CLINDAMYCIN HCL 36037745353 No Longer Active Jass Gutierrez MD Active ZITHROMAX Z-LIZ 250 MG TABS 2 today, then 1 daily for 4 days 2013 AZITHROMYCIN 90030908795 No Longer Active Jass Gutierrez MD Active METOPROLOL TARTRATE 100 MG TABS Take one (1) tablet by mouth twice a day 2011 METOPROLOL TARTRATE 17109535919 No Longer Active Jass Gutierrez MD Active ZOCOR 20 MG TABS Take 1 tablet by mouth daily take at bedtime SIMVASTATIN 29010196041 No Longer Active Jass Gutierrez MD Active ZOCOR 20 MG TABS Take 1 tablet by mouth daily take at bedtime ZOCOR 20 MG TABS 022174 SIMVASTATIN Inactive METOPROLOL TARTRATE 100 MG TABS Take one (1) tablet by mouth twice a day 2011 METOPROLOL TARTRATE 100 MG TABS 925445 METOPROLOL TARTRATE Inactive CLINDAMYCIN HCL 150 MG CAPS 1 four times a day CLINDAMYCIN HCL 150 MG CAPS 912964 CLINDAMYCIN HCL Inactive METOPROLOL SUCCINATE 50 MG TB24 1 tablet by mouth daily METOPROLOL SUCCINATE 50 MG TB24 METOPROLOL SUCCINATE Inactive PROAIR HFA 108 (90 BASE) MCG/ACT AERS 2 puffs four times a day as needed 2013 PROAIR HFA 108 (90 BASE) MCG/ACT AERS ALBUTEROL SULFATE Inactive HYDROCHLOROTHIAZIDE 25 MG TABS by mouth twice a day HYDROCHLOROTHIAZIDE 25 MG TABS 829821 HYDROCHLOROTHIAZIDE Inactive LOSARTAN POTASSIUM 100 MG TABS 1 pill by mouth daily, for blood pressure LOSARTAN POTASSIUM 100 MG TABS 994523 LOSARTAN POTASSIUM Inactive ZITHROMAX Z-LIZ 250 MG TABS 2 today, then 1 daily for 4 days 2013 ZITHROMAX Z-LIZ 250 MG TABS 4484031 AZITHROMYCIN Inactive Advance Directives Directive Description Start Date PERMISSION TO SHARE Vital Signs Date Name Value Unit Range Description blood pressure, diastolic - 8462-4 81 mm[Hg] BP gamez blood pressure, systolic - 8480-6 135 mm[Hg] BP sys pulse rate E&M - 8867-4 74 /min Heart rate temperature E&M 98.8 [degF] Body temperature weight E&M - 3141-9 310 [lb_av] Weight Measured Encounters Code Encounter Date Provider Facility CPT-89911 Level 3 Est. Patient 20:05:57 CDT Tristin Quinonez DO [facility] CPT-63936 Level 4 Est. Patient 10:25:49 CDT Jass Gutierrez MD [facility] CPT-34914 Level 3 Est. Patient 10:33:25 CDT Jass Gutierrez MD [facility] CPT-26574 Level 3 Est. 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 Patient 09:28:25 CDT Geovanny Smith [facility] Procedures Code Procedure Name Date Entry Date Standard Description CPT-OV Office Visit 10:34:41 CDT CPT-67158 Venipuncture Draw Fee 12:52:32 CARBONATOR
--- OUTSIDE RECORDS SUMMARY | 2017-08-03 08:23 | XMS REPORT | Continuity of Care Document ---
Demographics x Preferred Language Unknown Marital Status Unknown Synagogue Affiliation Unknown Race Unknown Ethnic Group Unknown Author Author [facility] Organization [facility] Address Unknown Phone Unavailable Allergies Active Description Code Type Severity Reaction Onset Reported/Identified Relationship to Patient Clinical Status Yes No known drug allergies 41151314 ND N/A N/A Yes No Known Medication Allergies NKFL N/A N/A 07/13/2014 Yes No Known Medication Allergies NKFL N/A N/A 07/13/2014 Medications Medication Packaging Start Date Stop Date Route Dosage Sig atorvastatin(atorvastatin 10 mg oral tablet) 1 tabs 07/30/2014 08/29/2016 Oral 10 mg 1 tabs, Oral, Bedtime (once a day), 90 tabs furosemide(furosemide 40 mg oral tablet) 1 tabs 09/16/2015 10/09/2016 Oral 40 mg 40 mg=1 tabs, Oral, Daily, 180 tabs, 5 Refill(s) lisinopril(lisinopril 10 mg oral tablet) 10/19/2015 10/19/2016 See Instructions, 1 tabs Oral Daily, 90 tabs, 5 Refill(s) carvedilol(carvedilol 25 mg oral tablet) 12/02/2015 06/05/2016 See Instructions, 1 TABS ORAL TWICE DAILY, 60 tabs, 5 Refill(s) lisinopril(lisinopril 20 mg oral tablet) 1 tabs 02/01/2017 Oral 20 mg 20 mg=1 tabs, Oral, Daily, 30 tabs, 11 Refill(s) furosemide(furosemide 40 mg oral tablet) 1 tabs 02/01/2017 Oral 40 mg 40 mg=1 tabs, Oral, BID, 60 tabs, 11 Refill(s) digoxin(digoxin 125 mcg (0.125 mg) oral tablet) 1 tabs 02/01/2017 Oral 125 mcg 125 mcg=1 tabs, Oral, Daily, 30 tabs, 11 Refill(s) atorvastatin(atorvastatin 20 mg oral tablet) 1 tabs 02/01/2017 Oral 20 mg 20 mg=1 tabs, Oral, Daily, take at bedtime, 30 tabs, 11 Refill(s) carvedilol(carvedilol 25 mg oral tablet) 1 tabs 02/01/2017 Oral 25 mg 25 mg=1 tabs, Oral, BID, 60 tabs, 11 Refill(s) Problems Date Dx Coded Attending Type Code Diagnosis Diagnosed By 11/24/2014 Final 401.1 BENIGN ESSENTIAL HYPERTENSION 11/24/2014 Final 414.01 CORONARY ATHEROSCLEROSIS OF [place] CORONARY ARTERY 11/24/2014 Final 425.4 OTHER PRIMARY CARDIOMYOPATHIES 11/24/2014 Final 427.31 ATRIAL FIBRILLATION 11/24/2014 Final 428.0 CONGESTIVE HEART FAILURE, UNSPECIFIED 11/24/2014 Final 428.22 CHRONIC SYSTOLIC HEART FAILURE 11/24/2014 Reason 794.39 OTHER NONSPECIFIC ABNORMAL FUNCTION STUDY OF CARDIOVASCULAR SYSTEM 11/24/2014 Final V58.61 Long- Term (Current) Use of Anticoagulants 12/22/2014 Reason 425.4 OTHER PRIMARY CARDIOMYOPATHIES 05/24/2016 Umesh Ortiz Final I10 Essential (primary) hypertension 05/24/2016 Umesh Ortiz Final I25.10 Atherosclerotic heart disease of [place] coronary artery without angina pectoris 05/24/2016 Rehan Ortizpha Final I48.2 Chronic atrial fibrillation 05/24/2016 Rehan Ortizpha Final I50.22 Chronic systolic (congestive) heart failure 05/24/2016 Umesh Ortiz Final Z82.49 Family history of ischemic heart disease and other diseases of the circulatory system 02/01/2017 Umesh Ortiz Final I48.2 Chronic atrial fibrillation 02/01/2017 Umesh Ortiz Final I50.22 Chronic systolic (congestive) heart failure 02/01/2017 Zackery Ortizsupha Final I10 Essential (primary) hypertension 02/01/2017 Diana Somsupha Final I25.10 Atherosclerotic heart disease of [place] coronary artery without angina pectoris 02/01/2017 Rehan Ortizpha Final Z82.49 Family history of ischemic heart disease and other diseases of the circulatory system Procedures Code Description [place] [address] ROUTINE VENIPUNCTURE 02/13/2014 67102 COMPREHEN METABOLIC PANEL 02/13/2014 89584 ASSAY THYROID STIM HORMONE 02/13/2014 25490 ELECTROCARDIOGRAM, TRACING 02/13/2014 04241 ELECTROCARDIOGRAM REPORT 02/13/2014 53023 CARDIOVASCULAR STRESS TEST 02/13/2014 J7120 RINGERS LACTATE INFUSION 02/13/2014 55227 Office or other outpatient visit for the evaluation and management of an established patient, which requires at least 2 of these 3 hermosillo components: A detailed history; A detailed examination; Medical d 05/24/2016 70512 Office or other outpatient visit for the evaluation and management of an established patient, which requires at least 2 of these 3 hermosillo components: A detailed history; A detailed examination; Medical d 02/01/2017 Results Test Result Range CBC WITH DIFF - 02/13/14 00:00 BASO% 0.2 % 0-2 EOS% 3.6 % 0-7.0 HCT 46.9 % 41.9-52.0 HGB 14.7 G/DL 13.0-18.0 LYMPH% 19.5 % 20-40 MCH 27.6 PG 27-31 MCHC 31.3 G/DL 33-37 MCV 88.0 FL 80-94 MONO% 7.5 % 0-10.0 MPV 10.2 FL 7.3-10.4 NEUTRO% 69.2 % 40-70 PLT 293 10^3u 130-400 RBC 5.3 10^6u 4.7-6.1 RDW 14.9 % 11.5-15.5 WBC 8.4 10^3u 4.8-10.8 NEUTRO# 5.8 10^3u 1.5-7.5 LYMPH# 1.7 10^3u 0.9-4.0 MONO# 0.6 10^3u 0-0.8 EOS# 0.3 10^3u 0-0.6 BASO# 0.0 10^3u 0-0.1 UA - 02/13/14 00:00 PH 6.0 4.5-8.0 SG 1.025 1.003-1.035 UABILI NEGATIVE UABLD NEGATIVE UACOLOR YEL UAGLU NEGATIVE UAKET NEGATIVE UALEUK NEGATIVE UANIT NEGATIVE UAURO 0.2 0-0.2 CLARITY CL PROTEIN NEGATIVE UA WBC R05 UA RBC NORBC SQUAMOUS EPITHELIAL CELLS NOSQUAM BACTERIA RARE MUCOUS OCC CMP - 02/13/14 00:00 ALB 3.0 G/DL 3.5-5 ALP 89 IU/L 50-136 ALT 26 IU/L 12-65 AST 21 IU/L 10-42 BCR 13.2 10-20 BUN 16 MG/DL 7-18 CA 8.7 MG/DL 8.4-10.2 CL 104 MEQ/L 98-107 CO2 32.0 MEQ/L 22-28 CREA 1.21 MG/DL 0.6-1.3 EGFR 63 eGFR >=60 GLU 102 MG/DL 70-105 K 3.3 MEQ/L 3.5-5.1 NA 140 MEQ/L 134-145 OSMSC 280.8 MOSML 280-300 TBIL 0.5 MG/DL 0.1-1.0 TP 6.8 G/DL 6.0-8.3 Albumin/Globulin Ratio 0.8 0-8 Anion Gap 4.0 8-16 TSH - 02/13/14 00:00 TSH 1.57 UIUML 0.36-3.74 PT INR - 07/20/14 00:00 INR 1.2 0.8-1.2 PT 12.0 SEC 9.1-12.0 Encounters ACCT No. Visit Date/Time Discharge Status Pt. Type Provider Facility Loc./Unit Complaint [id number] 07/20/2014 11:54:00 07/20/2014 11:54:00 DIS Outpatient ROSA ISELA [place] [facility] LAB [id number] 02/26/2014 10:12:00 02/26/2014 10:12:00 DIS Outpatient SAROJ [facility] RAD [id number] 02/13/2014 00:00:00 02/13/2014 11:45:00 DIS Outpatient SAROJ [facility] OPS [id number] 07/19/2013 00:00:00 Document Registration [id number] 07/19/2013 00:00:00 Document Registration [id number] 07/19/2013 00:00:00 Document Registration [id number] 07/13/2014 17:19:00 07/17/2014 13:44:00 DIS Inpatient Rosa Isela [place] [facility] [place] VCHF F4SE Acute Chf, A -fib with RVR [id number] 02/02/2017 05:22:06 Document Registration [id number] 12/03/2015 05:17:37 Document Registration [id number] 10/20/2015 05:16:42 Document Registration [id number] 09/17/2015 05:17:04 Document Registration [id number] 06/09/2015 11:49:58 Document Registration [id number] 11/20/2014 06:34:00 Document Registration [id number] 11/19/2014 06:40:00 Document Registration [id number] 02/01/2017 13:52:00 02/01/2017 23:59:00 DIS Out[facility] Kan[facility] [place] [facility] [id number] 05/24/2016 13:54:00 05/24/2016 23:59:00 DIS Out[facility] Kanjanauthai[facility] [place] RCK [id number] 11/22/2015 14:08:00 11/22/2015 23:59:00 DIS Outpatient Kanjanauthai, [facility] [place] RCK [id number] 05/24/2015 14:14:00 05/24/2015 23:59:00 DIS Outpatient Kanjanauthai, [facility] [place] RCK [id number] 09/30/2014 14:53:00 09/30/2014 23:59:00 DIS Outpatient Kanjanauthai, [facility] F[facility]U POST HEART CATH [id number] 07/30/2014 14:30:00 07/30/2014 23:59:00 DIS Outpatient Kanjanauthai, [facility] F/U [id number] 07/30/2014 11:21:00 07/30/2014 23:59:00 DIS Outpatient Kanjanauthai, [facility] [facility] ekg/428.21/401.1/ kanjanauthai [id number] 07/13/2014 14:16:00 07/13/2014 23:59:00 DIS Outpatient Monty Handy [facility] Mur Ca EKG [id number] 07/13/2014 13:44:00 07/13/2014 23:59:00 DIS Outpatient PROVIDER, NOTINSYSTEM [facility] [id number] 01/08/2015 07:13:00 Document Registration [id number] 12/30/2014 14:19:00 Document Registration [id number] 07/02/2017 09:05:24 07/02/2017 23:59:59 CLS Outpatient MAYITO DENIS [id number] 07/02/2017 08:13:10 07/02/2017 23:59:59 CLS Outpatient MAYITO DENIS [id number] 05/21/2017 10:19:08 05/21/2017 23:59:59 CLS Outpatient MAYITO DENIS
--- OUTSIDE RECORDS SUMMARY | 2017-08-03 08:23 | XMS REPORT | Clinical Summary ---
Author Author Admin, [facility] Organization [employer] Address Unknown Phone Unavailable Allergies, Adverse Reactions, [...] Quinonez DO Attic perforation of tympanic membrane CELLULITIS ICD-682.9 Inactive Jass Gutierrez MD PHYSICAL EXAMINATION ICD-V70.0 Inactive Jass Gutierrez MD Medication List Medication Instructions Start Date Stop Date Generic Name NDC Status Provider Patient Instruction AMOXICILLIN 500 MG CAPS 2 po TID x 10 days AMOXICILLIN 08935298475 No Longer Active Tristin Quinonez DO Active FUROSEMIDE 40 MG TAB 1 tablet by mouth daily FUROSEMIDE 24814468389 Active Tristin Quinonez DO Active LISINOPRIL 20 MG ORAL TABS 2 times a day LISINOPRIL 38468182363 Active Tristin Quinonez DO Active LANOXIN 125 MCG ORAL TABS 1 daily DIGOXIN 82883157088 Active Tristin Quinonez DO Active CARVEDILOL 12.5 MG ORAL TABS 1 daily CARVEDILOL 60442115726 Active Tristin Quinonez DO Active XARELTO 20 MG ORAL TABS 1 daily RIVAROXABAN 19060841259 Active Tristin Quinonez DO Active LOSARTAN POTASSIUM 100 MG TABS 1 pill by mouth daily, for blood pressure LOSARTAN POTASSIUM 68123754703 No Longer Active Tristin Quinonez DO Active HYDROCHLOROTHIAZIDE 25 MG TABS by mouth twice a day HYDROCHLOROTHIAZIDE 18007983916 No Longer Active Tristin Quinonez DO Active PROAIR HFA 108 (90 BASE) MCG/ACT AERS 2 puffs four times a day as needed 2013 ALBUTEROL SULFATE 38437136000 No Longer Active Tristin Quinonez DO Active METOPROLOL SUCCINATE 50 MG TB24 1 tablet by mouth daily METOPROLOL SUCCINATE 57315337588 No Longer Active Tristin Quinonez DO Active CLINDAMYCIN HCL 150 MG CAPS 1 four times a day CLINDAMYCIN HCL 68379708503 No Longer Active Jass Gutierrez MD Active ZITHROMAX Z-LIZ 250 MG TABS 2 today, then 1 daily for 4 days 2013 AZITHROMYCIN 56413695307 No Longer Active Jass Gutierrez MD Active METOPROLOL TARTRATE 100 MG TABS Take one (1) tablet by mouth twice a day 2011 METOPROLOL TARTRATE 14933013157 No Longer Active Jass Gutierrez MD Active ZOCOR 20 MG TABS Take 1 tablet by mouth daily take at bedtime SIMVASTATIN 76772288578 No Longer Active Jass Gutierrez MD Active ZOCOR 20 MG TABS Take 1 tablet by mouth daily take at bedtime ZOCOR 20 MG TABS 616397 SIMVASTATIN Inactive METOPROLOL TARTRATE 100 MG TABS Take one (1) tablet by mouth twice a day 2011 METOPROLOL TARTRATE 100 MG TABS 289151 METOPROLOL TARTRATE Inactive CLINDAMYCIN HCL 150 MG CAPS 1 four times a day CLINDAMYCIN HCL 150 MG CAPS 919112 CLINDAMYCIN HCL Inactive METOPROLOL SUCCINATE 50 MG TB24 1 tablet by mouth daily METOPROLOL SUCCINATE 50 MG TB24 METOPROLOL SUCCINATE Inactive PROAIR HFA 108 (90 BASE) MCG/ACT AERS 2 puffs four times a day as needed 2013 PROAIR HFA 108 (90 BASE) MCG/ACT AERS ALBUTEROL SULFATE Inactive HYDROCHLOROTHIAZIDE 25 MG TABS by mouth twice a day HYDROCHLOROTHIAZIDE 25 MG TABS 943967 HYDROCHLOROTHIAZIDE Inactive LOSARTAN POTASSIUM 100 MG TABS 1 pill by mouth daily, for blood pressure LOSARTAN POTASSIUM 100 MG TABS 151622 LOSARTAN POTASSIUM Inactive ZITHROMAX Z-LIZ 250 MG TABS 2 today, then 1 daily for 4 days 2013 ZITHROMAX Z-LIZ 250 MG TABS 2062639 AZITHROMYCIN Inactive AMOXICILLIN 500 MG CAPS 2 po TID x 10 days AMOXICILLIN 500 MG CAPS 349482 AMOXICILLIN Inactive Advance Directives Directive Description Start Date [...] Measured Encounters Code Encounter Date Provider Facility CPT-23903 Level 3 Est. Patient 20:05:57 CDT Tristin Quinonez DO [facility] CPT-94780 Level 4 Est. Patient 10:25:49 CDT Jass Gutierrez MD [facility] CPT-09862 Level 3 Est. Patient 10:33:25 CDT Jass Gutierrez MD [facility] CPT-55312 Level 3 Est. 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 Patient 09:28:25 CDT Geovanny Smith [facility] Procedures Code Procedure Name Date Entry Date Standard Description CPT-OV Office Visit 10:34:41 CDT CPT-49460 Venipuncture Draw Fee 12:52:32 MANUFACTURING EXECUTIVE
--- OUTSIDE RECORDS SUMMARY | 2017-08-03 08:23 | XMS REPORT | Referral Summary ---
Author Author [facility] Organization [facility] Address Unknown Phone Unavailable Care Team Providers Care Sales Expert Name Role Phone Dex Kennedy PCP Encounter VC Date(s): 12/30/14 - 12/30/14 [facility] [address] [place], [place] [address] Discharge Diagnosis: Chronic atrial [...] meds. Ordered: Office Visit Level 4 Est 22890 Return to Clinic CAD (coronary artery disease) Nonobstructive CAD per cath in November 2014. Continue aspirin, Coreg, Atorvastatin. Chronic atrial fibrillation Rate is controlled. Continue digoxin, Coreg, Xarelto. Ordered: Office Visit Level 4 Est 42295 Return to Clinic Chronic systolic CHF (congestive heart failure), NYHA class 2 Euvolemic. NYHA FC I-II. Continue lasix, Coreg, lisinopril, digoxin. LVEF 15-20% in June 2014. Will repeat echo. If LVEF < 35%, will refer for AICD for primary prevention for SCD. Ordered: Office Visit Level 4 Est 22940 Return to Clinic Family history of coronary artery disease Ordered: Office Visit Level 4 Est 21806 Return to Clinic Nonischemic cardiomyopathy See CHF. F/u in 4 months. Ordered: Office Visit Level 4 Est 05026 Return to Clinic Orders: Request for Cardiovascular Echo Referrals to Other Providers Referred by: Umesh Ortiz MD
--- OUTSIDE RECORDS SUMMARY | 2017-08-03 08:23 | XMS REPORT | Referral Summary ---
Author Author [facility] Organization [facility] Address Unknown Phone Unavailable Care Team Providers Care Internal Consultant Name Role Phone Dex Kennedy PCP Encounter VC Date(s): 05/24/15 - 05/24/15 [facility] [address] [place], [place] [address] Discharge Diagnosis: Chronic atrial fibrillation Discharge Diagnosis: [...] Collection of venous blood by venipuncture 05/24/15 Collection of venous blood by venipuncture 05/24/15 Collection of venous blood by venipuncture 05/24/15 [...] Released: 10/19/2005 Document Revised: 10/28/2012 Document Reviewed: [employer] Patient Information 2015 [employer]. This information is not intended to replace [...]
--- OUTSIDE RECORDS SUMMARY | 2017-08-03 08:23 | XMS REPORT ---
Author MAYITO Blair [facility] Address [address] [place], [place] [id number] Care Team Providers Care Ditch Cleaner Name Role Phone MAYITO DENIS PCP MAYITO DENIS PreferredProvider Allergies and Adverse Reactions Name Reaction Notes [...] Ordered Description Order Status 07/02/2017 12:00 AM COMPLETE CBC W/AUTO DIFF WBC Returned 07/02/2017 12:00 AM COMPREHEN METABOLIC PANEL Returned 07/02/2017 12:00 AM LIPID PANEL Returned 07/02/2017 12:00 AM Prostate Cancer Screening Returned 07/02/2017 12:00 AM ROUTINE VENIPUNCTURE Reviewed 07/02/2017 12:00 AM ASSAY OF TOTAL THYROXINE Returned 07/02/2017 12:00 AM ASSAY THYROID STIM HORMONE Returned 07/02/2017 12:00 AM ASSAY OF THYROID (T3 OR T4) Returned Results Summary Not available. History Of Immunizations [...] Number Policy Group Number Start Date [facility] [id number] N/A [employer] [id number] N/A History of Encounters Visit Date Visit Type Provider 07/02/2017 Laboratory MAYITO LARA 05/21/2017 Office visit MAYITO LARA
--- OUTSIDE RECORDS SUMMARY | 2017-08-03 08:23 | XMS REPORT | Referral Summary ---
Author Author [facility] Organization [facility] Address Unknown Phone Unavailable Care Team Providers Care Sponsorship Manager Name Role Phone Dex Kennedy PCP Encounter VC Date(s): 12/30/14 - 12/30/14 [facility] [address] [place], [place] [address] Discharge Diagnosis: Chronic atrial fibrillation Discharge [...] meds. Ordered: Office Visit Level 4 Est 65068 Return to Clinic CAD (coronary artery disease) Nonobstructive CAD per cath in November 2014. Continue aspirin, Coreg, Atorvastatin. Chronic atrial fibrillation Rate is controlled. Continue digoxin, Coreg, Xarelto. Ordered: Office Visit Level 4 Est 22774 Return to Clinic Chronic systolic CHF (congestive heart failure), NYHA class 2 Euvolemic. NYHA FC I-II. Continue lasix, Coreg, lisinopril, digoxin. LVEF 15-20% in June 2014. Will repeat echo. If LVEF < 35%, will refer for AICD for primary prevention for SCD. Ordered: Office Visit Level 4 Est 35581 Return to Clinic Family history of coronary artery disease Ordered: Office Visit Level 4 Est 40930 Return to Clinic Nonischemic cardiomyopathy See CHF. F/u in 4 months. Ordered: Office Visit Level 4 Est 21186 Return to Clinic Orders: Request for Cardiovascular Echo Referrals to Other Providers Referred by: Umesh Ortiz MD
[2017-08-03] MEDS ORDERED: NS IV 1000 ML 1,000 ML ONE (09:03)
[2017-08-03] MEDS ORDERED: LIDOCAINE 2% VISCOUS 15 ML UDC ONE (09:03)
[2017-08-03] MEDS ORDERED: proPOfol 200 MG/20 ML (DIPRIVAN) VIAL IV ONE (09:05)
[2017-08-03] MEDS ORDERED: fentaNYL INJECTION 100 MCG/2 ML AMP ONE (09:05)
[2017-08-03] MEDS ORDERED: MIDAZOLAM 5 MG/5 ML (VERSED) VIAL ONE (09:05)
[2017-08-03 09:24] VITALS: BP 146/100
[2017-08-03] MEDS ORDERED: NS IV 1000 ML 1,000 ML IV SCH (09:30)
[2017-08-03 09:33] LABS: MEAN PLATELET VOLUME 10.6 FL (7.4-10.4); RED BLOOD COUNT 4.77 10^6/uL (4.35-5.85); RED CELL DISTRIBUTION WIDTH 14.6 % (10.0-14.5); WHITE BLOOD COUNT 10.1 10^3/uL (4.3-11.0)
--- NOTE | 2017-08-03 09:34 | Diagnostic Imaging Report ---
EXAMINATION: Portable upright radiograph of the chest. INDICATION: Preoperative evaluation for transesophageal echocardiogram. FINDINGS: The heart size is mildly enlarged. There is no vascular congestion or focal infiltrate. No effusion or pneumothorax. The mediastinum and shahid appear unremarkable. IMPRESSION: Cardiomegaly. Dictated by: Dictated on workstation # [id number]
[2017-08-03] MEDS ORDERED: INFLUENZA TRIvalent 2017-2018 0.5 ML/45 MCG SYR IM ONE (09:45)
[2017-08-03 09:48] LABS: INR 1.4 (0.8-1.4); PROTHROMBIN TIME PATIENT 16.8 SEC (12.2-14.7)
[2017-08-03 09:54] LABS: ALANINE AMINOTRANSFERASE 20 U/L (0-55); ALBUMIN 3.6 GM/DL (3.2-4.5); ANION GAP 8 MMOL/L (5-14); ASPARTATE AMINO TRANSFERASE 22 U/L (5-34); BILIRUBIN,TOTAL 0.5 MG/DL (0.1-1.0); BLOOD UREA NITROGEN 19 MG/DL (7-18); BUN/CREATININE RATIO 19; CARBON DIOXIDE 26 MMOL/L (21-32); CHLORIDE 106 MMOL/L (98-107); CREATININE SERUM 0.98 MG/DL (0.60-1.30); GFR ESTIMATED > 60; GLUCOSE 94 MG/DL (70-105); SODIUM 140 MMOL/L (135-145); TOTAL PROTEIN 7.3 GM/DL (6.4-8.2)
[2017-08-03] MEDS ORDERED: ATOR20TA66 PO (10:00)
[2017-08-03] MEDS ORDERED: CARV25TA PO (10:00)
[2017-08-03] MEDS ORDERED: RIVA20TA PO (10:00)
[2017-08-03] MEDS ORDERED: FURO40TA4 PO (10:00)
[2017-08-03] MEDS ORDERED: DIGO125T PO (10:00)
[2017-08-03] MEDS ORDERED: LISI-552 PO (10:00)
[2017-08-03] MEDS ORDERED: ESOM20CA37 PO (10:02)
--- NOTE | 2017-08-03 10:06 | Cardiac Procedure Note-CS/ASA ---
Pre-Procedure Note Pre-Op Procedure Note H&P Reviewed The H&P was reviewed, patient examined and no changes noted. Date H&P Reviewed: Aug 03, 2017 Time H&P Reviewed: 10:05 Conscious Sedation Pre-Proced Time Reviewed: 10:05 ASA Class: 3 Airway Mallampati Classification: ([place] appropriate class) I. II. III, IV Lungs Heart ASA score ASA 1: a normal healthy patient ASA 2: a patient with a mild systemic disease (mid diabetes, controlled hypertension, obesity x ASA 3: a patient with a severe systemic disease that limits activity (angina , COPD, prior Myocardial infarction) ASA 4: a patient with an incapacitating disease that is a constant threat to life (CHF, renal failure) ASA 5: a moribund patient not expected to survive 24 hrs. (ruptured aneurysm) ASA 6: a declared brain patient whose organs are being harvested. For emergent operations, add the letter E after the classification Grade 3 Sedation Plan: Analgesia, Amnesia, Plan communicated to team members, Discussed options with patient/fam, Discussed risks with patient/fam Note The patient is an appropriate candidate to undergo the planned procedure, sedation, and anesthesia. The patient immediately re-assessed prior to indication. ROSS KAPLAN MD Aug 03, 2017 10:06
--- NOTE | 2017-08-03 10:26 | Progress Note-Standard ---
Standard Progress Note Progress Notes/Assess & Plan Date Seen by Provider: Aug 03, 2017 Time Seen by Provider: 10:10 Progress/Assessment & Plan consult for sedation, 5mg versed 120mg propofol given iv. pt tolerated procedure well. start time 1010 end time 1017 LINN TURPIN CRNA Aug 03, 2017 10:26
[2017-08-03] MEDS ORDERED: LIDOCAINE 2% VISCOUS 15 ML UDC PO ONE (10:30)
[2017-08-03] MEDS ORDERED: DRON400T2 PO (10:49)
[2017-08-03 10:50] VITALS: BP 144/90
--- NOTE | 2017-08-03 10:51 | Cardiac Procedure Note ---
Cardiology Procedures Date of Procedure 08/03/17 BRIEF HISTORY: The patient is a 57 male with atrial fibrillation, BUCKY showed no clot or thrombus. PROCEDURE NOTE: After explaining the procedure to the patient, all pros and cons were explained. The patient was sedated with assistance of anesthesia, DC cardioversion was delivered with 200 J, successful in terminating atrial fibrillation. IN CONCLUSION: successful DC cardioversion in terminating atrial fibrillation. ROSS KAPLAN MD Aug 03, 2017 10:51
--- NOTE | 2017-08-03 10:51 | Clinic Account Progress/Dx ---
Clinic Account Progress/Dx DIAGNOSIS: Date Seen by Provider: Aug 03, 2017 Time Seen by Provider: 10:51 Atrial fibrillation Palpitation Shortness of breath Hypertension Hyperlipidemia ROSS KAPLAN MD Aug 03, 2017 10:51
[2017-08-03 11:05] VITALS: BP 144/88
[2017-08-03 11:20] VITALS: BP 146/84
[2017-08-03 11:35] VITALS: BP 150/82
[2017-08-03 12:25] VITALS: BP 150/82
[2017-08-03] MEDS ORDERED: RIVAROXABAN 20 MG TABLET (XARELTO) PO SCH (17:00)
[2017-08-03] MEDS ORDERED: ATORVASTATIN 20 MG (LIPITOR) TABLET PO SCH (21:00)
[2017-08-03] MEDS ORDERED: FUROSEMIDE 40 MG (LASIX) TAB PO SCH (21:00)
[2017-08-03] MEDS ORDERED: NON-FORMULARY MEDICATION 1 EA EA (Carvedilol 25 MG) PO SCH (21:00)
[2017-08-03] MEDS ORDERED: DRONEDARONE TABLET 400 MG TABLET PO SCH (21:00)
[2017-08-04] MEDS ORDERED: lisINopril 20 MG (ZESTRIL) TAB PO SCH (09:00)
[2017-08-04] MEDS ORDERED: NON-FORMULARY MEDICATION 1 EA EA (Esomeprazole Magnesium 20 MG) PO SCH (09:00)
[2017-08-04] MEDS ORDERED: DIGOXIN 0.125 MG (LANOXIN) TAB PO SCH (09:00)
== END 2017-08-03 12:25 | disposition home or self-care (01) ==
LOC: CATH 08:17 → SURG 10:53 → CATH 12:25
PROVIDERS: ATTEND Internal Medicine Cardiovascular Disease
DX: I48.2 Chronic atrial fibrillation (principal); R06.02 Shortness of breath; I11.0 Hypertensive heart disease with heart failure; E78.5 Hyperlipidemia, unspecified; Z79.899 Other long term (current) drug therapy; I50.9 Heart failure, unspecified; I25.10 Atherosclerotic heart disease of native coronary artery without angina pectoris; I65.23 Occlusion and stenosis of bilateral carotid arteries; E66.9 Obesity, unspecified; G47.33 Obstructive sleep apnea (adult) (pediatric); Z68.42 Body mass index [BMI] 45.0-49.9, adult
CPT/HCPCS: 36415; 71010; 80053; 85027; 85610; 85730; 87081; 93005; 93312